=== PATIENT | male | born 1950 | race Caucasian/White ===

== ENCOUNTER 2016-09-11 12:43 | Inpatient (IN) | payer MEDICARE ==
[~2016-09-11] VITALS: Ht 185.4 cm; Wt 119.2 kg
[~2016-09-11 12:43] MED LIST: ATOR40TA52 PO; BIMA0.01 EACHEYE; BRIM0.2S17 EACHEYE; DORZ2SOL15 EACHEYE
[2016-09-11] MEDS ORDERED: SODIUM CHLORIDE 0.9% 1,000 ML IV ONE (13:04)
[2016-09-11] MEDS ORDERED: ONDANSETRON HCL 4 MG/2 ML VIAL IV ONE (13:15)
[2016-09-11 13:39] LABS: Basophils # (auto) 0.1 uL; Basophils % (auto) 0.3 % (0.0-2.0); DEFINITIVE VIEW TRANSMISSION; Eosinophils # (auto) 0 uL; Eosinophils % (auto) 0.2 % (0.0-7.0); Hemoglobin 18.3 g/dL (13.5-17.5); Lymphocytes % (auto) 4.7 % (10.0-50.0); Mean Corpuscular Hemoglobin 29.4 pg (28.0-32.0); Mean Corpuscular Hgb Conc. 31.5 g/dL (32.0-36.0); Mean Corpuscular Volume 93.6 fL (80.0-100.0); Mean Platelet Volume 8.7 fL (7.4-10.4); Monocytes # (auto) 0.3 uL; Monocytes % (auto) 1.6 % (0.0-12.0); Neutrophils # (auto) 19.1 uL; Neutrophils % (auto) 93.2 % (37.0-80.0); Platelet Count (auto) 259 10^3/uL (140-450); Red Cell Distribution Width 14.2 % (11.6-16.0); White Blood Cell 20.5 10^3/uL (4.4-10.8)
[2016-09-11 13:54] LABS: Hematocrit 58.3 % (41.0-53.0); INR 1.06 (0.9-1.15); Partial Thromboplastin Time 28.9 sec (22.64-33.71); Prothrombin Time 10.9 sec (9.37-12.3)
[2016-09-11 14:00] LABS: Albumin 5.4 g/dL (3.4-5.0); BUN/Creatinine Ratio 9.6; Calcium 10.5 mg/dL (8.5-10.1); Potassium 5.4 mmol/L (3.5-5.1)
[2016-09-11 14:03] LABS: Bilirubin, Total 0.5 mg/dL (0.2-1.0); Total Protein 10.4 g/dL (6.4-8.2)
[2016-09-11 14:07] LABS: B-Type Natriuretic Peptide 6.65 pg/mL (0-100)
[2016-09-11 14:08] LABS: Temperature: 22.3 C (20.0-25.0)
[2016-09-11] MEDS ORDERED: PROMETHAZINE HCL 25 MG/ML 1ML IV ONE (18:30)
[2016-09-11] MEDS: cefTRIAXone 1GM/50ML D5W 50 ML IV SCH (21:30)
[2016-09-11] MEDS ORDERED: SODIUM CHLORIDE 0.9% 1,000 ML IV SCH (21:30)
[2016-09-11] MEDS ORDERED: HYDROcodone-ACET 5/325MG TAB PO PRN (21:30)
[2016-09-11] MEDS ORDERED: ACETAMINOPHEN 325 MG TAB PO PRN (21:30)
[2016-09-11] MEDS: metroNIDAZOLE 500MG/100ML 100 ML IV SCH (22:00)
[2016-09-11] MEDS: ATORVASTATIN 20 MG TAB PO SCH (22:00)
[2016-09-11] MEDS ORDERED: ENOXAPARIN SOD 30 MG/0.3 ML SYRINGE SC ONE (22:15)
[2016-09-11 22:19] VITALS: BP 112/71
[2016-09-11] MEDS: BRIMONIDINE 0.2% OPTH Soln 5ml EACHEYE SCH (22:54)
[2016-09-11] MEDS: DORZOLAM-TIMOLOL(2/0.5%) OPTH(EYE) SOLN 10ML EACHEYE SCH (22:54)
[2016-09-11] MEDS: MORPHINE SULF INJ 2 MG/ML SYRINGE 1ML IV PRN (22:54)
[2016-09-11] MEDS: ONDANSETRON HCL 4 MG/2 ML VIAL IV PRN (22:55)
[2016-09-12] MEDS: MORPHINE SULF INJ 2 MG/ML SYRINGE 1ML IV PRN ×4 (03:48→21:51)
[2016-09-12] MEDS: metroNIDAZOLE 500MG/100ML 100 ML IV SCH ×3 (03:53→22:05)
[2016-09-12 04:50] VITALS: BP 113/78
[2016-09-12 06:35] LABS: BUN/Creatinine Ratio 13.3; Bilirubin, Total 0.5 mg/dL (0.2-1.0); Calcium 9.1 mg/dL (8.5-10.1); Potassium 4.7 mmol/L (3.5-5.1); Total Protein 7.8 g/dL (6.4-8.2)
[2016-09-12 06:48] LABS: Basophils # (auto) 0 uL; Basophils % (auto) 0.3 % (0.0-2.0); Eosinophils # (auto) 0 uL; Eosinophils % (auto) 0.1 % (0.0-7.0); Hematocrit 47.3 % (41.0-53.0); Hemoglobin 15.7 g/dL (13.5-17.5); Lymphocytes # (auto) 1.6 uL; Lymphocytes % (auto) 9.7 % (10.0-50.0); Mean Corpuscular Hgb Conc. 33.2 g/dL (32.0-36.0); Mean Corpuscular Volume 93.4 fL (80.0-100.0); Mean Platelet Volume 9.7 fL (7.4-10.4); Monocytes # (auto) 1.3 uL; Neutrophils # (auto) 13.5 uL; Neutrophils % (auto) 81.9 % (37.0-80.0); Platelet Count (auto) 228 10^3/uL (140-450); Red Cell Distribution Width 12.7 % (11.6-16.0); SUSPECT VIEW TRANSMISSION; White Blood Cell 16.4 10^3/uL (4.4-10.8)
[2016-09-12 08:00] VITALS: BP 113/81
[2016-09-12] MEDS: DORZOLAM-TIMOLOL(2/0.5%) OPTH(EYE) SOLN 10ML EACHEYE SCH ×2 (09:38→22:05)
[2016-09-12] MEDS: BRIMONIDINE 0.2% OPTH Soln 5ml EACHEYE SCH ×2 (09:39→22:05)
[2016-09-12] MEDS: cefTRIAXone 1GM/50ML D5W 50 ML IV SCH (09:39)
[2016-09-12] MEDS: PANTOPRAZOLE SODIUM 40 MG/10 ML VIAL IV SCH (09:39)
[2016-09-12] MEDS: ENOXAPARIN SOD 40 MG/0.4 ML SYRINGE SC SCH (09:40)
[2016-09-12] MEDS ORDERED: GASTROGRAFIN 30 ML SOL ONE (10:40)
[2016-09-12] MEDS ORDERED: BARIUM SULFATE 98% 340 GM PWDR ONE (10:41)
[2016-09-12] MEDS ORDERED: GASTROGRAFIN 120 ML SOL ONE (11:03)
[2016-09-12] MEDS: SOD CHL 0.9%/ KCL 20MEQ 1,000 ML IV SCH (16:06)
[2016-09-12 16:53] VITALS: BP 99/62
[2016-09-12 21:36] VITALS: BP 97/64
[2016-09-12] MEDS: ATORVASTATIN 20 MG TAB PO SCH (22:05)
[2016-09-13] LABS: Urine RBC None Seen /hpf (0 - 3)
[2016-09-13 00:09] LABS: Urine Bilirubin Negative (Negative); Urine Blood Negative /uL (Negative); Urine Color Yellow (Yellow); Urine Glucose Normal (Normal); Urine Ketone TRACE (Negative); Urine Nitrite Negative (Negative); Urine Urobilinogen Normal (Negative); Urine pH 5.5 (5.0-8.0)
[2016-09-13] MEDS: SOD CHL 0.9%/ KCL 20MEQ 1,000 ML IV SCH ×2 (00:22→09:45)
[2016-09-13 04:37] VITALS: BP 97/64
[2016-09-13] MEDS: metroNIDAZOLE 500MG/100ML 100 ML IV SCH ×3 (05:38→21:36)
[2016-09-13 06:15] LABS: Potassium 4.4 mmol/L (3.5-5.1)
[2016-09-13 06:18] LABS: BUN/Creatinine Ratio 26.1
[2016-09-13 09:00] VITALS: BP 98/54
[2016-09-13] MEDS: cefTRIAXone 1GM/50ML D5W 50 ML IV SCH (09:00)
[2016-09-13] MEDS: PANTOPRAZOLE SODIUM 40 MG/10 ML VIAL IV SCH (09:44)
[2016-09-13] MEDS: ENOXAPARIN SOD 40 MG/0.4 ML SYRINGE SC SCH (09:44)
[2016-09-13] MEDS: DORZOLAM-TIMOLOL(2/0.5%) OPTH(EYE) SOLN 10ML EACHEYE SCH ×2 (09:44→21:36)
[2016-09-13] MEDS: BRIMONIDINE 0.2% OPTH Soln 5ml EACHEYE SCH ×2 (09:44→21:36)
[2016-09-13] MEDS: MORPHINE SULF INJ 2 MG/ML SYRINGE 1ML IV PRN ×3 (10:15→21:24)
[2016-09-13] MEDS: SOD CHL 0.45% WITH 20MEQ KCL 1,000 ML IV SCH ×2 (12:23→21:36)
[2016-09-13 13:00] VITALS: BP 101/69
[2016-09-13 14:03] LABS: Basophils # (auto) 0 uL; Basophils % (auto) 0.3 % (0.0-2.0); Eosinophils # (auto) 0.2 uL; Eosinophils % (auto) 1.7 % (0.0-7.0); Hematocrit 38.2 % (41.0-53.0); Hemoglobin 12.4 g/dL (13.5-17.5); Lymphocytes # (auto) 1.8 uL; Lymphocytes % (auto) 17.1 % (10.0-50.0); Mean Corpuscular Hemoglobin 30.3 pg (28.0-32.0); Mean Corpuscular Hgb Conc. 32.6 g/dL (32.0-36.0); Mean Corpuscular Volume 93.2 fL (80.0-100.0); Mean Platelet Volume 9.1 fL (7.4-10.4); Monocytes # (auto) 0.7 uL; Monocytes % (auto) 7.2 % (0.0-12.0); Neutrophils # (auto) 7.7 uL; Neutrophils % (auto) 73.7 % (37.0-80.0); Platelet Count (auto) 231 10^3/uL (140-450); Red Cell Distribution Width 14.1 % (11.6-16.0); White Blood Cell 10.4 10^3/uL (4.4-10.8)
[2016-09-13 16:00] VITALS: BP 96/66
[2016-09-13] MEDS: ATORVASTATIN 20 MG TAB PO SCH (21:36)
[2016-09-13 22:00] VITALS: BP 120/73
[2016-09-14 05:30] VITALS: BP 93/43
[2016-09-14] MEDS: SOD CHL 0.45% WITH 20MEQ KCL 1,000 ML IV SCH ×3 (05:39→20:50)
[2016-09-14] MEDS: metroNIDAZOLE 500MG/100ML 100 ML IV SCH ×3 (05:39→20:51)
[2016-09-14 08:00] VITALS: BP 117/70
[2016-09-14] MEDS: MORPHINE SULF INJ 2 MG/ML SYRINGE 1ML IV PRN ×2 (08:27→20:51)
[2016-09-14] MEDS: cefTRIAXone 1GM/50ML D5W 50 ML IV SCH (08:31)
[2016-09-14] MEDS: ENOXAPARIN SOD 40 MG/0.4 ML SYRINGE SC SCH (08:36)
[2016-09-14] MEDS: DORZOLAM-TIMOLOL(2/0.5%) OPTH(EYE) SOLN 10ML EACHEYE SCH ×2 (08:36→20:52)
[2016-09-14] MEDS: BRIMONIDINE 0.2% OPTH Soln 5ml EACHEYE SCH ×2 (08:36→20:52)
[2016-09-14] MEDS: PANTOPRAZOLE SODIUM 40 MG/10 ML VIAL IV SCH (08:36)
[2016-09-14 12:00] VITALS: BP 93/51
[2016-09-14 16:00] VITALS: BP 113/65
[2016-09-14] MEDS: ATORVASTATIN 20 MG TAB PO SCH (20:51)
[2016-09-14 22:00] VITALS: BP 104/56
[2016-09-15] MEDS: SOD CHL 0.45% WITH 20MEQ KCL 1,000 ML IV SCH ×2 (03:09→13:00)
[2016-09-15] MEDS: metroNIDAZOLE 500MG/100ML 100 ML IV SCH ×2 (05:11→14:00)
[2016-09-15] MEDS: MORPHINE SULF INJ 2 MG/ML SYRINGE 1ML IV PRN (05:19)
[2016-09-15] MEDS: ONDANSETRON HCL 4 MG/2 ML VIAL IV PRN (05:19)
[2016-09-15 05:55] LABS: Calcium 7.9 mg/dL (8.5-10.1); Potassium 3.8 mmol/L (3.5-5.1)
[2016-09-15 05:57] LABS: BUN/Creatinine Ratio 14.7
[2016-09-15] MEDS: cefTRIAXone 1GM/50ML D5W 50 ML IV SCH (08:24)
[2016-09-15 08:25] VITALS: BP 119/57
[2016-09-15] MEDS: PANTOPRAZOLE SODIUM 40 MG/10 ML VIAL IV SCH (08:29)
[2016-09-15] MEDS: DORZOLAM-TIMOLOL(2/0.5%) OPTH(EYE) SOLN 10ML EACHEYE SCH (08:29)
[2016-09-15] MEDS: BRIMONIDINE 0.2% OPTH Soln 5ml EACHEYE SCH (08:29)
[2016-09-15] MEDS: ENOXAPARIN SOD 40 MG/0.4 ML SYRINGE SC SCH (08:29)
[2016-09-15 13:00] VITALS: BP 109/60
== END 2016-09-15 15:00 | disposition home or self-care (01) | DRG 393 ==
LOC: EDUNIT# 12:43 → ER 12:45 → OVERFLOW 12:46 → CENTRAL 22:19
PROVIDERS: ADMIT Internal Medicine; ATTEND Internal Medicine Pulmonary Disease
DX: K43.6 Other and unspecified ventral hernia with obstruction, without gangrene (principal); N17.0 Acute kidney failure with tubular necrosis; E87.1 Hypo-osmolality and hyponatremia; K42.0 Umbilical hernia with obstruction, without gangrene; D72.829 Elevated white blood cell count, unspecified; E66.01 Morbid (severe) obesity due to excess calories; E78.5 Hyperlipidemia, unspecified; I70.0 Atherosclerosis of aorta; J44.9 Chronic obstructive pulmonary disease, unspecified; E87.5 Hyperkalemia; I10 Essential (primary) hypertension; Z68.34 Body mass index [BMI] 34.0-34.9, adult; Z82.49 Family history of ischemic heart disease and other diseases of the circulatory system; Z83.3 Family history of diabetes mellitus; Z87.891 Personal history of nicotine dependence; Z79.899 Other long term (current) drug therapy
CPT/HCPCS: 36415; 71010; 74176; 74250; 80048; 80053; 81001; 82150; 83605; 83690; 83880; 84484; 85025; 85610; 85730; 87040; 87081; 93005; 96361; 96374; 96375; C9113; J0696; J2405; J3490